=== PATIENT | male | born 2000 | race African-American/Black ===

== ENCOUNTER 2023-10-02 10:14 | Emergency (ER) | payer SELFPAY ==
[2023-10-02 10:51] VITALS: BP 126/82; PULSE 62; RESP 18; TEMP 98.4; BMI 27.1
[2023-10-02 12:18] LABS: HIV INTERPRETATION NEGATIVE (NEGATIVE)
== END 2023-10-02 12:33 | disposition home or self-care (01) ==
LOC: JERFT 10:14
DX: J40 Bronchitis, not specified as acute or chronic (principal); R05.9 Cough, unspecified; Z20.822 Contact with and (suspected) exposure to COVID-19
CPT/HCPCS: 0241U-QW; 36415; 71046-TC-FY; 86803; 87389; 99284-25